=== PATIENT | female | born 1970 | race Caucasian/White ===

== ENCOUNTER 2018-08-11 12:48 | Emergency (ER) | payer BC ==
[~2018-08-11] VITALS: Ht 170.2 cm; Wt 52.2 kg
[2018-08-11] MEDS ORDERED: FIASP 100100 UNIT/1 SUBQ (12:54)
[2018-08-11] MEDS ORDERED: KEFLEX500 M1 PO (13:58)
[2018-08-11 14:35] VITALS: BP 111/57
== END 2018-08-11 14:20 | disposition home or self-care (01) ==
LOC: ER 12:48
DX: S61.211A Laceration without foreign body of left index finger without damage to nail, initial encounter (principal); E11.9 Type 2 diabetes mellitus without complications; Z79.4 Long term (current) use of insulin; W23.1XXA Caught, crushed, jammed, or pinched between stationary objects, initial encounter; Y92.89 Other specified places as the place of occurrence of the external cause; Y93.89 Activity, other specified; Y99.8 Other external cause status